=== PATIENT | male | born 1945 | race African-American/Black ===

== ENCOUNTER 2018-01-13 17:30 | Inpatient (IN) | payer MEDICARE, MEDICAID ==
[~2018-01-13] VITALS: Ht 180.3 cm; Wt 127.0 kg
[~2018-01-13 17:30] MED LIST: ASPI-986 PO; ATOR10TA69 PO; FLUT16SP15 NS; FURO-151 PO; POTA20TA82 PO; PRAV40TA58 PO; TRAM50TA3 PO
[2018-01-13 19:02] LABS: BG BASE EXCESS -13.4 mmol/L (-2.0-2.0); BG CARBOXYHEMOGLOBIN 1.1 % (0.5-1.5); BG DEOXYHEMOGLOBIN 1.1 % (0.0-5.0); BG FRACTION INSPIRED OXYGEN 100; BG HCO3 ACT 14.9 mmol/L (22.0-26.0); BG METHEMOGLOBIN 0.2 % (0.0-1.5); BG OXYGEN SATURATION 98.9 % (92.0-98.5); BG OXYHEMOGLOBIN 97.6 % (94.0-97.0); BG PCO2 49.1 mmHg (35.0-45.0); BG PH 7.101 (7.350-7.450); BG PO2 252.6 mmHg (75.0-100.0); BG SAMPLE SITE LEFT BRACHIAL; BG TOTAL HEMOGLOBIN 5.4 g/dL (12.0-18.0); BG VENT MODE MASK - NRB
[2018-01-13 19:19] LABS: MEAN CORPUSCULAR HEMOGLOBIN 25.5 pg (28.0-32.0); MEAN CORPUSCULAR VOLUME 84.5 fL (80.0-94.0); MEAN PLATELET VOLUME 7.2 fl (7.4-10.4); PLATELET 329 x1000/uL (130-400); RED BLOOD CELL COUNT 1.92 mill/uL (4.7-6.1); RED CELL DISTRIBUTION WIDTH 18.1 % (11.6-14.6)
[2018-01-13 19:27] LABS: INR 1.4; PROTHROMBIN TIME 14.5 sec (9.4-11.6)
[2018-01-13 19:35] LABS: HEMATOCRIT. 16.2 % (42.0-52.0); HEMOGLOBIN. 4.9 g/dL (14.0-18.0)
[2018-01-13 19:39] LABS: CHLORIDE 111 mEq/L (98-107)
[2018-01-13 19:59] LABS: NUCLEATED RED BLOOD CELLS 6 /100 WBC; PLATELET ESTIMATE NORMAL
[2018-01-13] MEDS ORDERED: FUROSEMIDE 100MG/10ML VIAL IV STA (20:11)
[2018-01-13] MEDS ORDERED: ALBUTEROL (0.083%) 2.5MG/3ML NEB HHN ONE (20:15)
[2018-01-13] MEDS ORDERED: SODIUM BICARBONATE 8.4% 1 MEQ/ML 50ML SYR IV ONE (20:15)
[2018-01-13] MEDS ORDERED: INSULIN REGULAR (HUMULIN R) 300UNITS/3ML IV ONE (20:15)
[2018-01-13] MEDS ORDERED: CALCIUM CHLORIDE 1GM/10ML SYR IV ONE (20:15)
[2018-01-13] MEDS ORDERED: DEXTROSE 50% WATER 50ML SYRINGE IV ONE (20:15)
[2018-01-13 20:23] LABS: INR 1.4; PROTHROMBIN TIME 14.6 sec (9.4-11.6)
[2018-01-13] MEDS ORDERED: SODIUM BICARBONATE 8.4% 1 MEQ/ML 50ML SYR IV NR (21:00)
[2018-01-14] VITALS (71 sets, daily range): BP systolic 70–176; BP diastolic 20–95
[2018-01-14 02:28] LABS: MEAN CORPUSCULAR HEMOGLOBIN 26.1 pg (28.0-32.0); MEAN CORPUSCULAR VOLUME 85.3 fL (80.0-94.0); MEAN PLATELET VOLUME 7.7 fl (7.4-10.4); PLATELET 327 x1000/uL (130-400); RED BLOOD CELL COUNT 2.29 mill/uL (4.7-6.1); RED CELL DISTRIBUTION WIDTH 16.9 % (11.6-14.6)
[2018-01-14 02:32] LABS: HEMATOCRIT. 19.5 % (42.0-52.0)
[2018-01-14] MEDS ORDERED: ALBUMIN HUMAN 25GM/100ML (25%) IV SCH (03:30)
[2018-01-14] MEDS ORDERED: DIPHENHYDRAMINE 50MG CAPSULE PO PRN (03:30)
[2018-01-14] MEDS ORDERED: DEXTROSE 50% WATER 50ML SYRINGE IV PRN (03:30)
[2018-01-14] MEDS ORDERED: CALCIUM CHLORIDE 1GM/10ML SYR IV NR ×2 (03:45→05:00)
[2018-01-14] MEDS ORDERED: DEXTROSE 50% WATER 50ML SYRINGE IV NR (03:45)
[2018-01-14] MEDS ORDERED: DEXT 10% WATER 1,000 ML IV ONE (03:45)
[2018-01-14] MEDS ORDERED: FUROSEMIDE 40MG/4ML VIAL IVP NR (03:45)
[2018-01-14] MEDS ORDERED: SODIUM BICARBONATE 8.4% 1 MEQ/ML 50ML SYR IV NR (03:45)
[2018-01-14] MEDS ORDERED: INSULIN REGULAR (HUMULIN R) UD 100 UNITS/ML SYR IV NR (03:45)
[2018-01-14 04:54] LABS: CLARITY URINE TURBID (CLEAR); COLOR URINE RED (YELLOW); KETONES URINE NEGATIVE (NEGATIVE); LEUKOCYTE ESTERASE URINE 2+ (NEGATIVE); NITRITE URINE POSITIVE (NEGATIVE); OCCULT BLOOD URINE 2+ (NEGATIVE); PROTEIN URINE 2+ (NEGATIVE); SPECIFIC GRAVITY URINE 1.017 (1.005-1.030); UROBILINOGEN URINE 0.2 E.U./dL (0.2-1.0)
[2018-01-14 05:12] LABS: NUCLEATED RED BLOOD CELLS 8 /100 WBC
[2018-01-14 05:13] LABS: PLATELET ESTIMATE NORMAL
[2018-01-14] MEDS ORDERED: VANCOMYCIN 1500MG in DEXTROSE 5% WATER 250ML IV NR (06:00)
[2018-01-14] MEDS: MEROPENEM 500 MG in SODIUM CHLORIDE 0.9% 50 ML IV SCH ×2 (06:28→17:17)
[2018-01-14 07:45] LABS: MEAN CORPUSCULAR HEMOGLOBIN 26.9 pg (28.0-32.0); MEAN PLATELET VOLUME 7.5 fl (7.4-10.4); PLATELET 291 x1000/uL (130-400); RED BLOOD CELL COUNT 2.28 mill/uL (4.7-6.1)
[2018-01-14 07:50] LABS: BG BASE EXCESS -13.3 mmol/L (-2.0-2.0); BG CARBOXYHEMOGLOBIN 2.1 % (0.5-1.5); BG DEOXYHEMOGLOBIN 5.8 % (0.0-5.0); BG FRACTION INSPIRED OXYGEN 21; BG HCO3 ACT 13.4 mmol/L (22.0-26.0); BG METHEMOGLOBIN 0.2 % (0.0-1.5); BG OXYGEN SATURATION 94.1 % (92.0-98.5); BG OXYHEMOGLOBIN 91.9 % (94.0-97.0); BG PCO2 34.8 mmHg (35.0-45.0); BG PH 7.205 (7.350-7.450); BG PO2 80.3 mmHg (75.0-100.0); BG SAMPLE SITE RIGHT BRACHIAL; BG VENT MODE ROOM AIR
[2018-01-14] MEDS ORDERED: LIDOCAINE HCL 1% 20ML VIAL (Pyxis) INJ ONE (07:52)
[2018-01-14 07:56] LABS: HEMATOCRIT. 19.4 % (42.0-52.0); HEMOGLOBIN. 6.1 g/dL (14.0-18.0)
[2018-01-14] MEDS ORDERED: LORAZEPAM 2MG/ML CPJ IV PRN (08:00)
[2018-01-14] MEDS ORDERED: SODIUM BICARBONATE 8.4% 1 MEQ/ML 50ML SYR IV SCH (08:00)
[2018-01-14] MEDS ORDERED: LORAZEPAM 2MG/ML CPJ IV SCH (08:15)
[2018-01-14] MEDS ORDERED: LORAZEPAM 1MG TABLET PO PRN (08:15)
[2018-01-14 10:01] LABS: NUCLEATED RED BLOOD CELLS 4 /100 WBC; PLATELET ESTIMATE NORMAL
[2018-01-14] MEDS: PANTOPRAZOLE SODIUM 40 MG/VIAL IV SCH (10:04)
[2018-01-14 10:25] LABS: *AMPHETAMINES SCREEN URINE NEGATIVE (NEGATIVE); *BARBITURATES SCREEN URINE NEGATIVE (NEGATIVE); *BENZODIAZEPINES SCREEN URINE NEGATIVE (NEGATIVE); *COCAINE SCREEN URINE NEGATIVE (NEGATIVE); CANNABINOID URINE SCREEN NEGATIVE (NEGATIVE); METHADONE URINE SCREEN NEGATIVE (NEGATIVE); OPIATES URINE SCREEN NEGATIVE (NEGATIVE); PHENCYCLIDINE URINE SCREEN NEGATIVE (NEGATIVE)
[2018-01-14 11:58] LABS: HEPATITIS B SURFACE ANTIGEN NEGATIVE
[2018-01-14] MEDS: BLOOD SUGAR DIAGNOSTIC STRIP TEST SCH ×2 (12:00→18:05)
[2018-01-14 12:25] LABS: HEPATITIS B CORE AB IGM NEGATIVE
[2018-01-14 12:26] LABS: HEPATITIS A AB IGM NEGATIVE (NEGATIVE)
[2018-01-14] MEDS: ALBUMIN HUMAN 25GM/100ML (25%) IV SCH (14:03)
[2018-01-14 16:57] LABS: HEMATOCRIT. 21.7 % (42.0-52.0); HEMOGLOBIN. 7.3 g/dL (14.0-18.0); MEAN CORPUSCULAR HEMOGLOBIN 27.3 pg (28.0-32.0); MEAN CORPUSCULAR VOLUME 81.5 fL (80.0-94.0); MEAN PLATELET VOLUME 7.4 fl (7.4-10.4); PLATELET 279 x1000/uL (130-400); RED BLOOD CELL COUNT 2.66 mill/uL (4.7-6.1); RED CELL DISTRIBUTION WIDTH 16.2 % (11.6-14.6)
[2018-01-14] MEDS ORDERED: VANCOMYCIN 750 MG PREMIX 150 ML IV NR (17:00)
[2018-01-14] MEDS ORDERED: DIGOXIN 500MCG/2ML AMP IV NR (17:00)
[2018-01-14 17:02] LABS: PHOSPHORUS 5.3 mg/dL (2.5-4.9)
[2018-01-14 17:05] LABS: CREATINE KINASE MB FRACTION 5.2 ng/mL (0.5-3.6)
[2018-01-14] MEDS ORDERED: AMIODARONE HCL 150 MG in DEXT 5% WATER 100 ML IV NR (17:30)
[2018-01-14] MEDS: AMIODARONE HCL 900 MG in DEXT 5% WATER 482 ML IV PRN (18:07)
[2018-01-14] MEDS: LORAZEPAM 2MG/ML CPJ IV PRN (19:30)
[2018-01-14 22:22] LABS: NUCLEATED RED BLOOD CELLS 15 /100 WBC; PLATELET ESTIMATE NORMAL
[2018-01-15] VITALS (54 sets, daily range): BP systolic 109–174; BP diastolic 51–114
[2018-01-15] MEDS: LORAZEPAM 2MG/ML CPJ IV PRN ×5 (00:09→17:20)
[2018-01-15] MEDS: ALBUMIN HUMAN 25GM/100ML (25%) IV SCH ×2 (03:59→16:04)
[2018-01-15 05:41] LABS: HEMATOCRIT. 28.5 % (42.0-52.0); HEMOGLOBIN. 9.6 g/dL (14.0-18.0); MEAN CORPUSCULAR HEMOGLOBIN 27.9 pg (28.0-32.0); MEAN CORPUSCULAR VOLUME 82.7 fL (80.0-94.0); MEAN PLATELET VOLUME 7.5 fl (7.4-10.4); PLATELET 298 x1000/uL (130-400); RED BLOOD CELL COUNT 3.45 mill/uL (4.7-6.1)
[2018-01-15 05:51] LABS: CHLORIDE 108 mEq/L (98-107)
[2018-01-15] MEDS: BLOOD SUGAR DIAGNOSTIC STRIP TEST SCH ×5 (05:56→23:47)
[2018-01-15] MEDS: MEROPENEM 500 MG in SODIUM CHLORIDE 0.9% 50 ML IV SCH ×2 (05:56→17:20)
[2018-01-15 06:06] LABS: HDL CHOLESTEROL 15 mg/dL (40-59); LDL CHOLESTEROL 30 mg/dL (5-100); PHOSPHORUS 6.1 mg/dL (2.5-4.9); TOTAL IRON BINDING CAPACITY 395 ug/dL (250-450)
[2018-01-15 07:07] LABS: NUCLEATED RED BLOOD CELLS 8 /100 WBC; PLATELET ESTIMATE NORMAL
[2018-01-15] MEDS: DEXT 5%/0.45% NACL 1000ML 1,000 ML IV SCH (08:14)
[2018-01-15] MEDS: PANTOPRAZOLE SODIUM 40 MG/VIAL IV SCH (08:15)
[2018-01-15] MEDS ORDERED: RIVA20TA PO (16:54)
[2018-01-15] MEDS ORDERED: FURO40TA5 PO (16:54)
[2018-01-15] MEDS ORDERED: FEBU40TA PO (16:54)
[2018-01-15] MEDS ORDERED: TAMS0.4C31 PO (16:54)
[2018-01-15] MEDS: AMIODARONE HCL 900 MG in DEXT 5% WATER 482 ML IV PRN (19:56)
[2018-01-16] VITALS (45 sets, daily range): BP systolic 106–186; BP diastolic 53–112
[2018-01-16] MEDS: LORAZEPAM 2MG/ML CPJ IV PRN ×2 (00:13→04:02)
[2018-01-16] MEDS: ALBUMIN HUMAN 25GM/100ML (25%) IV SCH ×2 (02:47→16:18)
[2018-01-16] MEDS: DEXT 5%/0.45% NACL 1000ML 1,000 ML IV SCH ×2 (02:47→22:32)
[2018-01-16] MEDS: MEROPENEM 500 MG in SODIUM CHLORIDE 0.9% 50 ML IV SCH (05:09)
[2018-01-16] MEDS: BLOOD SUGAR DIAGNOSTIC STRIP TEST SCH ×4 (05:28→23:40)
[2018-01-16 05:40] LABS: HEMATOCRIT. 27.8 % (42.0-52.0); HEMOGLOBIN. 9.2 g/dL (14.0-18.0); MEAN CORPUSCULAR HEMOGLOBIN 27.3 pg (28.0-32.0); MEAN CORPUSCULAR VOLUME 82.9 fL (80.0-94.0); MEAN PLATELET VOLUME 7.3 fl (7.4-10.4); PLATELET 289 x1000/uL (130-400); RED BLOOD CELL COUNT 3.36 mill/uL (4.7-6.1); RED CELL DISTRIBUTION WIDTH 16.3 % (11.6-14.6)
[2018-01-16 06:07] LABS: PHOSPHORUS 5.5 mg/dL (2.5-4.9)
[2018-01-16] MEDS ORDERED: HALOPERIDOL LACTATE 5MG/ML VIAL IM PRN (07:45)
[2018-01-16 07:47] LABS: NUCLEATED RED BLOOD CELLS 1 /100 WBC; PLATELET ESTIMATE NORMAL
[2018-01-16 07:55] LABS: AMMONIA 30 uMol/L (<32)
[2018-01-16] MEDS: PANTOPRAZOLE SODIUM 40 MG/VIAL IV SCH (07:55)
[2018-01-16] MEDS ORDERED: MORPHINE SULFATE 2 MG/ML CPJ (NOT FOR IM USE) IV NR (13:15)
[2018-01-16] MEDS ORDERED: MORPHINE SULFATE 4 MG/ML CPJ (NOT FOR IM USE) IV ONE (13:24)
[2018-01-16] MEDS ORDERED: MORPHINE SULFATE 4 MG/ML CPJ (NOT FOR IM USE) IV NR (13:30)
[2018-01-16] MEDS ORDERED: CLONIDINE HCL 0.1MG/24HR PATCH TD SCH (14:00)
[2018-01-16] MEDS: DIAZEPAM 5 MG/ML 2ML CPJ IM PRN ×2 (14:27→20:15)
[2018-01-16] MEDS ORDERED: VANCOMYCIN 1 G PREMIX 200 ML IV SCH (15:00)
[2018-01-16] MEDS ORDERED: FLUCONAZOLE 100 MG/50ML BAG 50 ML IV SCH (16:00)
[2018-01-16] MEDS ORDERED: THIAMINE HCL 100 MG in SODIUM CHLORIDE 0.9% 49 ML IV NR (16:00)
[2018-01-16] MEDS: MORPHINE SULFATE 4 MG/ML CPJ (NOT FOR IM USE) IV PRN ×2 (17:46→22:28)
[2018-01-16] MEDS: FLUCONAZOLE 100MG/50ML in BAG IV SCH (17:46)
[2018-01-17] VITALS (88 sets, daily range): BP systolic 117–197; BP diastolic 57–108
[2018-01-17] MEDS: DIAZEPAM 5 MG/ML 2ML CPJ IM PRN (01:55)
[2018-01-17] MEDS: AMIODARONE HCL 900 MG in DEXT 5% WATER 482 ML IV PRN (03:03)
[2018-01-17] MEDS: MORPHINE SULFATE 4 MG/ML CPJ (NOT FOR IM USE) IV PRN ×4 (03:03→20:08)
[2018-01-17 04:55] LABS: HEMATOCRIT. 26.6 % (42.0-52.0); HEMOGLOBIN. 8.9 g/dL (14.0-18.0); MEAN CORPUSCULAR HEMOGLOBIN 27.7 pg (28.0-32.0); MEAN PLATELET VOLUME 7.3 fl (7.4-10.4); PLATELET 263 x1000/uL (130-400); RED BLOOD CELL COUNT 3.21 mill/uL (4.7-6.1); RED CELL DISTRIBUTION WIDTH 15.8 % (11.6-14.6)
[2018-01-17 05:16] LABS: PHOSPHORUS 3.2 mg/dL (2.5-4.9)
[2018-01-17] MEDS: BLOOD SUGAR DIAGNOSTIC STRIP TEST SCH ×4 (05:32→23:54)
[2018-01-17 07:37] LABS: PLATELET ESTIMATE NORMAL
[2018-01-17] MEDS: PANTOPRAZOLE SODIUM 40 MG/VIAL IV SCH (08:30)
[2018-01-17] MEDS: AMIODARONE HCL 200 MG TABLET PO SCH ×2 (12:09→20:31)
[2018-01-17] MEDS: FLUCONAZOLE 100MG/50ML in BAG IV SCH (15:03)
[2018-01-17] MEDS ORDERED: CLONIDINE 0.1MG TABLET PO PRN (17:45)
[2018-01-17] MEDS ORDERED: IPRATROPIUM/ALBUTEROL 0.5-3(2.5)MG/3ML NEB HHN PRN (17:45)
[2018-01-17] MEDS ORDERED: DEXTROSE 50% WATER 50ML SYRINGE IV PRN (18:00)
[2018-01-17] MEDS: DEXT 5%/0.45% NACL 1000ML 1,000 ML IV SCH (18:34)
[2018-01-17] MEDS: IPRATROPIUM/ALBUTEROL 0.5-3(2.5)MG/3ML NEB HHN SCH (20:22)
[2018-01-18] VITALS (33 sets, daily range): BP systolic 122–171; BP diastolic 48–104
[2018-01-18] MEDS: IPRATROPIUM/ALBUTEROL 0.5-3(2.5)MG/3ML NEB HHN SCH ×4 (00:17→20:03)
[2018-01-18] MEDS: MORPHINE SULFATE 4 MG/ML CPJ (NOT FOR IM USE) IV PRN ×3 (02:41→19:50)
[2018-01-18] MEDS: BLOOD SUGAR DIAGNOSTIC STRIP TEST SCH ×5 (04:08→21:00)
[2018-01-18 05:47] LABS: BASOPHILS % 0.4 % (0.0-2.0); EOSINOPHILS % 2.2 % (0.0-5.0); HEMOGLOBIN. 8.4 g/dL (14.0-18.0); LYMPHOCYTES % 7.8 % (20.0-50.0); MEAN CORPUSCULAR HEMOGLOBIN 27.7 pg (28.0-32.0); MEAN CORPUSCULAR VOLUME 85.9 fL (80.0-94.0); MEAN PLATELET VOLUME 7.4 fl (7.4-10.4); MONOCYTES % 12.7 % (2.0-8.0); NEUTROPHILS % 76.9 % (40.0-76.0); PLATELET 217 x1000/uL (130-400); RED BLOOD CELL COUNT 3.03 mill/uL (4.7-6.1); RED CELL DISTRIBUTION WIDTH 16.6 % (11.6-14.6)
[2018-01-18] MEDS: PANTOPRAZOLE SODIUM 40 MG/VIAL IV SCH (08:32)
[2018-01-18] MEDS: AMIODARONE HCL 200 MG TABLET PO SCH ×2 (08:32→21:19)
[2018-01-18] MEDS ORDERED: CLOTRIMAZOLE/BETAMETHASONE 1/0.05% CREAM 15GM TOP SCH (09:00)
[2018-01-18] MEDS ORDERED: POTASSIUM CHLORIDE 20MEQ TABLET SR PO NR (09:30)
[2018-01-18] MEDS: CLOTRIMAZOLE 1% CREAM 30GM TOP SCH (09:59)
[2018-01-18] MEDS ORDERED: VANCOMYCIN 1,750 MG in DEXT 5% WATER 500 ML IV NR (10:00)
[2018-01-18] MEDS: SILVER SULFADIAZINE 1% CREAM 50GM TOP SCH (10:00)
[2018-01-18] MEDS: BETAMETHASONE DIPROPIONATE 0.05% TOP SCH (10:00)
[2018-01-18] MEDS: FLUCONAZOLE 100MG/50ML in BAG IV SCH (17:05)
[2018-01-18] MEDS: DIPHENHYDRAMINE 25MG CAPSULE PO PRN (21:20)
[2018-01-19] VITALS (9 sets, daily range): BP systolic 131–168; BP diastolic 55–77
[2018-01-19] MEDS: MORPHINE SULFATE 4 MG/ML CPJ (NOT FOR IM USE) IV PRN ×2 (04:49→12:04)
[2018-01-19] MEDS: IPRATROPIUM/ALBUTEROL 0.5-3(2.5)MG/3ML NEB HHN SCH ×4 (04:51→21:31)
[2018-01-19] MEDS: PANTOPRAZOLE 40MG DR TABLET PO SCH (05:55)
[2018-01-19 05:57] LABS: HEMATOCRIT. 27.6 % (42.0-52.0); HEMOGLOBIN. 9.1 g/dL (14.0-18.0); MEAN CORPUSCULAR HEMOGLOBIN 27.4 pg (28.0-32.0); MEAN CORPUSCULAR VOLUME 83.2 fL (80.0-94.0); PLATELET 242 x1000/uL (130-400); RED BLOOD CELL COUNT 3.32 mill/uL (4.7-6.1); RED CELL DISTRIBUTION WIDTH 16.7 % (11.6-14.6)
[2018-01-19] MEDS ORDERED: BLOOD SUGAR DIAGNOSTIC STRIP TEST SCH (08:00)
[2018-01-19 08:04] LABS: PHOSPHORUS 3.8 mg/dL (2.5-4.9)
[2018-01-19] MEDS: AMIODARONE HCL 200 MG TABLET PO SCH ×2 (08:09→21:03)
[2018-01-19] MEDS: BLOOD SUGAR DIAGNOSTIC STRIP TEST SCH ×2 (08:09→21:00)
[2018-01-19] MEDS: CLOTRIMAZOLE 1% CREAM 30GM TOP SCH (08:10)
[2018-01-19] MEDS: BETAMETHASONE DIPROPIONATE 0.05% TOP SCH (08:10)
[2018-01-19] MEDS: SILVER SULFADIAZINE 1% CREAM 50GM TOP SCH (08:10)
[2018-01-19 12:42] LABS: CLARITY URINE CLOUDY (CLEAR); COLOR URINE ORANGE (YELLOW); KETONES URINE NEGATIVE (NEGATIVE); LEUKOCYTE ESTERASE URINE 2+ (NEGATIVE); NITRITE URINE NEGATIVE (NEGATIVE); OCCULT BLOOD URINE 3+ (NEGATIVE); PROTEIN URINE 2+ (NEGATIVE); SPECIFIC GRAVITY URINE 1.013 (1.005-1.030); UROBILINOGEN URINE 0.2 E.U./dL (0.2-1.0)
[2018-01-19 13:52] LABS: PLATELET ESTIMATE NORMAL
[2018-01-19] MEDS: ACETAMINOPHEN 325MG TABLET PO PRN (14:07)
[2018-01-19] MEDS: GUAIFENESIN-DM 200MG-20MG/10ML UDC PO PRN (17:13)
[2018-01-19] MEDS: FLUCONAZOLE 100MG/50ML in BAG IV SCH (17:17)
[2018-01-19] MEDS: BENZONATATE 200MG CAPSULE PO SCH ×2 (17:23→21:03)
[2018-01-19] MEDS ORDERED: FUROSEMIDE 100MG/10ML VIAL IVP NR (21:00)
[2018-01-19] MEDS: NAPROXEN 250MG TABLET PO SCH (21:03)
[2018-01-19] MEDS: ISOSORB DINIT/HYDRALAZINE HCL 20/37.5MG TABLET PO SCH (21:04)
[2018-01-19 21:56] LABS: CREATINE KINASE 224 IU/L (39-308); CREATINE KINASE MB FRACTION 2.6 ng/mL (0.5-3.6)
[2018-01-20] VITALS (8 sets, daily range): BP systolic 106–135; BP diastolic 48–58
[2018-01-20] MEDS: IPRATROPIUM/ALBUTEROL 0.5-3(2.5)MG/3ML NEB HHN SCH ×4 (02:25→20:58)
[2018-01-20] MEDS: ISOSORB DINIT/HYDRALAZINE HCL 20/37.5MG TABLET PO SCH ×3 (05:52→21:25)
[2018-01-20] MEDS: PANTOPRAZOLE 40MG DR TABLET PO SCH (05:52)
[2018-01-20 06:38] LABS: BASOPHILS % 0.5 % (0.0-2.0); HEMATOCRIT. 29.3 % (42.0-52.0); HEMOGLOBIN. 9.4 g/dL (14.0-18.0); MEAN CORPUSCULAR HEMOGLOBIN 27.2 pg (28.0-32.0); MEAN CORPUSCULAR VOLUME 84.5 fL (80.0-94.0); MEAN PLATELET VOLUME 7.6 fl (7.4-10.4); MONOCYTES % 10.4 % (2.0-8.0); NEUTROPHILS % 79.1 % (40.0-76.0); PLATELET 232 x1000/uL (130-400); RED BLOOD CELL COUNT 3.47 mill/uL (4.7-6.1); RED CELL DISTRIBUTION WIDTH 17.1 % (11.6-14.6)
[2018-01-20] MEDS: NAPROXEN 250MG TABLET PO SCH ×2 (08:14→17:10)
[2018-01-20] MEDS: BLOOD SUGAR DIAGNOSTIC STRIP TEST SCH ×2 (08:15→21:00)
[2018-01-20] MEDS: BENZONATATE 200MG CAPSULE PO SCH ×4 (08:15→21:25)
[2018-01-20] MEDS: AMIODARONE HCL 200 MG TABLET PO SCH ×2 (08:15→21:24)
[2018-01-20 08:38] LABS: CHLORIDE 107 mEq/L (98-107)
[2018-01-20 08:50] LABS: CREATINE KINASE 193 IU/L (39-308); CREATINE KINASE MB FRACTION 2.4 ng/mL (0.5-3.6); PHOSPHORUS 4.6 mg/dL (2.5-4.9); T4 FREE 1.05 ng/dL (0.76-1.46)
[2018-01-20] MEDS ORDERED: FUROSEMIDE 100MG/10ML VIAL IVP SCH (10:15)
[2018-01-20] MEDS: BETAMETHASONE DIPROPIONATE 0.05% TOP SCH (10:19)
[2018-01-20] MEDS: SILVER SULFADIAZINE 1% CREAM 50GM TOP SCH (10:19)
[2018-01-20] MEDS: CLOTRIMAZOLE 1% CREAM 30GM TOP SCH (10:19)
[2018-01-20] MEDS: MORPHINE SULFATE 4 MG/ML CPJ (NOT FOR IM USE) IV PRN ×2 (10:21→21:26)
[2018-01-20] MEDS: GUAIFENESIN-DM 200MG-20MG/10ML UDC PO PRN ×2 (10:29→21:26)
[2018-01-20] MEDS: FLUCONAZOLE 100MG/50ML in BAG IV SCH (15:35)
[2018-01-20] MEDS: DIPHENHYDRAMINE 25MG CAPSULE PO PRN (23:58)
[2018-01-20] MEDS: ACETAMINOPHEN 325MG TABLET PO PRN (23:58)
[2018-01-21] VITALS: BP 97/72
[2018-01-21] MEDS: IPRATROPIUM/ALBUTEROL 0.5-3(2.5)MG/3ML NEB HHN SCH ×2 (02:27→08:15)
[2018-01-21 04:00] VITALS: BP 124/55
[2018-01-21] MEDS: ISOSORB DINIT/HYDRALAZINE HCL 20/37.5MG TABLET PO SCH (06:06)
[2018-01-21] MEDS: PANTOPRAZOLE 40MG DR TABLET PO SCH (06:06)
[2018-01-21] MEDS: MORPHINE SULFATE 4 MG/ML CPJ (NOT FOR IM USE) IV PRN (06:11)
[2018-01-21 08:10] VITALS: BP 131/51
[2018-01-21] MEDS: BLOOD SUGAR DIAGNOSTIC STRIP TEST SCH (09:00)
[2018-01-21] MEDS: SILVER SULFADIAZINE 1% CREAM 50GM TOP SCH ×2 (09:32→09:46)
[2018-01-21] MEDS: AMIODARONE HCL 200 MG TABLET PO SCH (09:32)
[2018-01-21] MEDS: NAPROXEN 250MG TABLET PO SCH (09:32)
[2018-01-21] MEDS: BENZONATATE 200MG CAPSULE PO SCH (09:32)
[2018-01-21] MEDS: CLOTRIMAZOLE 1% CREAM 30GM TOP SCH (09:47)
[2018-01-21] MEDS: BETAMETHASONE DIPROPIONATE 0.05% TOP SCH (09:48)
[2018-01-21 11:46] VITALS: BP 130/72
[2018-01-21 12:29] VITALS: BP 128/59
[2018-01-22 08:21] LABS: TESTOSTERONE FREE 0.8 pg/mL (6.6-18.1)
== END 2018-01-21 13:07 | disposition home health service (06) | DRG 871 ==
LOC: ER 17:46 → MICUSO 20:32 → EDBEDREQSVC 20:34 → EDBEDREQTM 20:34 → EDBEDREQ 20:34 → ENRESERV 22:07 → 6WST 01-18 14:11
PROVIDERS: ADMIT Internal Medicine; ATTEND Internal Medicine
PROC: 30233N1 Transfusion of Nonautologous Red Blood Cells into Peripheral Vein, Percutaneous Approach (ICD-10-PCS; 2018-01-13)
PROC: 02HV33Z Insertion of Infusion Device into Superior Vena Cava, Percutaneous Approach (ICD-10-PCS; 2018-01-14)
PROC: B548ZZA Ultrasonography of Superior Vena Cava, Guidance (ICD-10-PCS; 2018-01-14)
PROC: 5A1D70Z Performance of Urinary Filtration, Intermittent, Less than 6 Hours Per Day (ICD-10-PCS; 2018-01-14)
PROC: 5A1D70Z Performance of Urinary Filtration, Intermittent, Less than 6 Hours Per Day (ICD-10-PCS; 2018-01-16)
PROC: 4A00X4Z Measurement of Central Nervous Electrical Activity, External Approach (ICD-10-PCS; principal; 2018-01-17)
DX: A41.9 Sepsis, unspecified organism (principal); E43 Unspecified severe protein-calorie malnutrition; J69.0 Pneumonitis due to inhalation of food and vomit; N17.0 Acute kidney failure with tubular necrosis; G92 Toxic encephalopathy; E87.2 Acidosis; I13.0 Hypertensive heart and chronic kidney disease with heart failure and stage 1 through stage 4 chronic kidney disease, or unspecified chronic kidney disease; N39.0 Urinary tract infection, site not specified; F11.23 Opioid dependence with withdrawal; L03.115 Cellulitis of right lower limb; L03.116 Cellulitis of left lower limb; E11.22 Type 2 diabetes mellitus with diabetic chronic kidney disease; E11.40 Type 2 diabetes mellitus with diabetic neuropathy, unspecified; E11.51 Type 2 diabetes mellitus with diabetic peripheral angiopathy without gangrene; I48.0 Paroxysmal atrial fibrillation; E86.0 Dehydration; I50.9 Heart failure, unspecified; N18.9 Chronic kidney disease, unspecified; D64.9 Anemia, unspecified; E66.01 Morbid (severe) obesity due to excess calories; E78.00 Pure hypercholesterolemia, unspecified; E78.5 Hyperlipidemia, unspecified; E87.5 Hyperkalemia; G89.29 Other chronic pain; I87.2 Venous insufficiency (chronic) (peripheral); J44.9 Chronic obstructive pulmonary disease, unspecified; L30.9 Dermatitis, unspecified; M19.90 Unspecified osteoarthritis, unspecified site; Z86.718 Personal history of other venous thrombosis and embolism; Z88.0 Allergy status to penicillin; Z99.2 Dependence on renal dialysis; Z79.82 Long term (current) use of aspirin; Z79.899 Other long term (current) drug therapy; Z68.39 Body mass index [BMI] 39.0-39.9, adult
CPT/HCPCS: 36415; 36569; 36600; 70450; 71045; 74176; 76770; 76937; 80048; 80053; 80061; 80069; 80076; 80202; 80305; 81003; 82140; 82375; 82550; 82553; 82575; 82805; 82947; 82962; 83036; 83540; 83550; 83605; 83735; 83880; 84100; 84153; 84402; 84403; 84439; 84443; 84484; 84550; 85025; 85049; 85610; 85651; 86705; 86709; 86803; 86850; 86900; 86920; 87040; 87070; 87077; 87086; 87186; 87205; 87340; 87804; 93005; 93306; 94640; 96374; 96375; 97116; 97162; 97166; 99291; A6261; C1752; C9113; J0282; J1160; J1450; J1630; J1815; J1940; J2060; J2185; J2270; J3370; J3411; J3490; J7030; J7050; J7060; J7620; P9016; P9047; Q0163

== ENCOUNTER 2018-08-07 16:04 | Inpatient (IN) | payer MEDICARE, OTHER ==
[~2018-08-07] VITALS: Ht 170.2 cm; Wt 103.6 kg
[~2018-08-07 16:04] MED LIST changes: +FEBU40TA PO; +FURO40TA5 PO; +RIVA20TA PO; +TAMS0.4C31 PO
[2018-08-07] MEDS ORDERED: SODIUM CHLORIDE 0.9% 1000ML BAG (SEPSIS BOLUS) IV ONE (16:45)
[2018-08-07 17:05] LABS: BASOPHILS % 0.5 % (0.0-2.0); CHLORIDE 100 mEq/L (98-107); EOSINOPHILS % 0.7 % (0.0-5.0); HEMATOCRIT. 24.6 % (42.0-52.0); HEMOGLOBIN. 7.9 g/dL (14.0-18.0); LYMPHOCYTES % 15.1 % (20.0-50.0); MEAN CORPUSCULAR HEMOGLOBIN 27.7 pg (28.0-32.0); MEAN PLATELET VOLUME 7.2 fl (7.4-10.4); MONOCYTES % 11.4 % (2.0-8.0); NEUTROPHILS % 72.3 % (40.0-76.0); PLATELET 442 x1000/uL (130-400); RED BLOOD CELL COUNT 2.86 mill/uL (4.7-6.1); RED CELL DISTRIBUTION WIDTH 17.2 % (11.6-14.6)
[2018-08-07 17:07] LABS: INR 1.3; PARTIAL THROMBOPLASTIN TIME 34.1 sec (23.4-31.0); PROTHROMBIN TIME 13.1 sec (9.1-11.1)
[2018-08-07 17:29] LABS: CLARITY URINE CLEAR (CLEAR); COLOR URINE YELLOW (YELLOW); KETONES URINE TRACE (NEGATIVE); LEUKOCYTE ESTERASE URINE NEGATIVE (NEGATIVE); NITRITE URINE NEGATIVE (NEGATIVE); OCCULT BLOOD URINE TRACE (NEGATIVE); PROTEIN URINE NEGATIVE (NEGATIVE); SPECIFIC GRAVITY URINE 1.012 (1.005-1.030); UROBILINOGEN URINE 0.2 E.U./dL (0.2-1.0)
[2018-08-07] MEDS ORDERED: LEVOFLOXACIN 750MG PREMIX 150 ML IV ONE (18:00)
[2018-08-07] MEDS ORDERED: ASPIRIN 325MG EC TABLET PO ONE (18:00)
[2018-08-07 22:17] VITALS: BP 125/68
[2018-08-07 22:23] VITALS: BP 125/68
[2018-08-07 22:31] VITALS: BP 125/68
[2018-08-08] VITALS (7 sets, daily range): BP systolic 95–129; BP diastolic 36–68
[2018-08-08] MEDS ORDERED: MAGNESIUM CITRATE 300ML SOLUTION PO PRN (04:00)
[2018-08-08 06:59] LABS: BASOPHILS % 0.7 % (0.0-2.0); EOSINOPHILS % 2.2 % (0.0-5.0); HEMATOCRIT. 22.5 % (42.0-52.0); HEMOGLOBIN. 7.4 g/dL (14.0-18.0); MEAN CORPUSCULAR HEMOGLOBIN 28.2 pg (28.0-32.0); MEAN PLATELET VOLUME 7.1 fl (7.4-10.4); MONOCYTES % 9.2 % (2.0-8.0); NEUTROPHILS % 68.9 % (40.0-76.0); PLATELET 407 x1000/uL (130-400); RED BLOOD CELL COUNT 2.62 mill/uL (4.7-6.1); RED CELL DISTRIBUTION WIDTH 16.9 % (11.6-14.6)
[2018-08-08] MEDS ORDERED: OMEPRAZOLE 20MG CAPSULE EXTENDED RELEASE PO SCH (07:40)
[2018-08-08] MEDS: TAMSULOSIN HCL 0.4MG SR CAPSULE PO SCH ×2 (08:44→16:53)
[2018-08-08] MEDS: DOCUSATE SODIUM 100MG CAPSULE PO SCH ×2 (08:45→16:54)
[2018-08-08] MEDS: FLUCONAZOLE 100MG TABLET PO SCH (08:45)
[2018-08-08 09:05] LABS: PHOSPHORUS 4.5 mg/dL (2.5-4.9)
[2018-08-08] MEDS: RIVAROXABAN 15 MG TABLET PO SCH (16:54)
[2018-08-08] MEDS: ZOLPIDEM TARTRATE 5MG TABLET PO PRN (20:34)
[2018-08-08] MEDS: ATORVASTATIN CALCIUM 10MG TABLET PO SCH (20:34)
[2018-08-09 08:00] VITALS: BP 113/59
[2018-08-09] MEDS: FLUCONAZOLE 100MG TABLET PO SCH (09:51)
[2018-08-09] MEDS: TAMSULOSIN HCL 0.4MG SR CAPSULE PO SCH ×2 (09:52→17:40)
[2018-08-09] MEDS: DOCUSATE SODIUM 100MG CAPSULE PO SCH ×2 (09:57→17:40)
[2018-08-09 12:00] VITALS: BP 114/64
[2018-08-09 16:00] VITALS: BP_SYST 110; BP_SYST 113; BP_SYST 118; BP_DIAS 52; BP_DIAS 55; BP_DIAS 58
[2018-08-09] MEDS: RIVAROXABAN 15 MG TABLET PO SCH (17:40)
[2018-08-09 20:00] VITALS: BP_SYST 108; BP_SYST 109; BP_SYST 98; BP_DIAS 49; BP_DIAS 51; BP_DIAS 53
[2018-08-09] MEDS: ATORVASTATIN CALCIUM 10MG TABLET PO SCH (21:38)
[2018-08-10] VITALS: BP 111/56
[2018-08-10] MEDS ORDERED: ACETAMINOPHEN 325MG TABLET PO PRN (00:15)
[2018-08-10] MEDS ORDERED: DIATR MEGLU/DIATRIZOATE SOLN 30ML PO SCH (00:15)
[2018-08-10 01:08] LABS: HEMATOCRIT 24.5 % (42.0-52.0); HEMOGLOBIN 7.9 g/dL (14.0-18.0)
[2018-08-10 04:00] VITALS: BP 106/54
[2018-08-10] MEDS ORDERED: EPOETIN ALFA 10000UNITS/ML VIAL SUBCUT NR (04:00)
[2018-08-10] MEDS: IRON SUCROSE COMPLEX 100 MG/5 ML ML IV SCH ×2 (05:58→17:17)
[2018-08-10 08:00] VITALS: BP_SYST 121; BP_SYST 136; BP_SYST 144; BP_DIAS 63; BP_DIAS 65; BP_DIAS 74
[2018-08-10] MEDS: CYANOCOBALAMIN/FA/PYRIDOXINE TABLET PO SCH (08:09)
[2018-08-10] MEDS: TAMSULOSIN HCL 0.4MG SR CAPSULE PO SCH ×2 (08:09→17:20)
[2018-08-10] MEDS: FLUCONAZOLE 100MG TABLET PO SCH (08:09)
[2018-08-10] MEDS: DOCUSATE SODIUM 100MG CAPSULE PO SCH ×2 (08:09→17:00)
[2018-08-10 12:00] VITALS: BP 120/54
[2018-08-10] MEDS ORDERED: DEXT 5%/0.45% NACL 1000ML 1,000 ML IV SCH (15:30)
[2018-08-10 16:00] VITALS: BP 115/53
[2018-08-10] MEDS ORDERED: DEXT 5%/0.45% NACL 1000ML 1,000 ML IV ONE (16:15)
[2018-08-10] MEDS: RIVAROXABAN 15 MG TABLET PO SCH (17:17)
[2018-08-10 19:40] LABS: HEMATOCRIT 23.8 % (42.0-52.0); HEMOGLOBIN 7.6 g/dL (14.0-18.0)
[2018-08-10 20:00] VITALS: BP 115/65
[2018-08-10] MEDS: ATORVASTATIN CALCIUM 10MG TABLET PO SCH (20:41)
[2018-08-10] MEDS: ZOLPIDEM TARTRATE 5MG TABLET PO PRN (21:31)
[2018-08-11] VITALS: BP_SYST 120; BP_SYST 145; BP_DIAS 65
[2018-08-11 04:00] VITALS: BP 112/62
[2018-08-11] MEDS: IRON SUCROSE COMPLEX 100 MG/5 ML ML IV SCH ×3 (05:36→21:42)
[2018-08-11 06:13] LABS: BASOPHILS % 0.7 % (0.0-2.0); EOSINOPHILS % 1.4 % (0.0-5.0); HEMATOCRIT. 24.3 % (42.0-52.0); LYMPHOCYTES % 11.6 % (20.0-50.0); MEAN CORPUSCULAR HEMOGLOBIN 28.4 pg (28.0-32.0); MEAN CORPUSCULAR VOLUME 86.6 fL (80.0-94.0); MEAN PLATELET VOLUME 7.4 fl (7.4-10.4); MONOCYTES % 8.6 % (2.0-8.0); NEUTROPHILS % 77.7 % (40.0-76.0); PLATELET 434 x1000/uL (130-400); RED BLOOD CELL COUNT 2.81 mill/uL (4.7-6.1); RED CELL DISTRIBUTION WIDTH 16.5 % (11.6-14.6)
[2018-08-11 06:27] LABS: PHOSPHORUS 2.6 mg/dL (2.5-4.9)
[2018-08-11 06:54] LABS: VITAMIN B12 SERUM 1199 pg/mL (211-911)
[2018-08-11 08:00] VITALS: BP_SYST 121; BP_SYST 126; BP_DIAS 51; BP_DIAS 53; BP_DIAS 60
[2018-08-11] MEDS: TAMSULOSIN HCL 0.4MG SR CAPSULE PO SCH ×2 (08:26→16:13)
[2018-08-11] MEDS: FLUCONAZOLE 100MG TABLET PO SCH (08:26)
[2018-08-11] MEDS: CYANOCOBALAMIN/FA/PYRIDOXINE TABLET PO SCH (08:26)
[2018-08-11] MEDS: DOCUSATE SODIUM 100MG CAPSULE PO SCH ×2 (08:26→16:17)
[2018-08-11 10:47] LABS: FOLIC ACID (FOLATE) SERUM 11.2 ng/mL (>5.38)
[2018-08-11 11:41] VITALS: BP 121/60
[2018-08-11 16:00] VITALS: BP 125/68
[2018-08-11] MEDS: RIVAROXABAN 15 MG TABLET PO SCH (16:13)
[2018-08-11 20:00] VITALS: BP 116/59
[2018-08-11] MEDS ORDERED: EPOETIN ALFA 10000UNITS/ML VIAL SUBCUT SCH (21:00)
[2018-08-11] MEDS: ATORVASTATIN CALCIUM 10MG TABLET PO SCH (21:41)
[2018-08-11] MEDS: ZOLPIDEM TARTRATE 5MG TABLET PO PRN (21:41)
[2018-08-12] VITALS: BP 116/59
[2018-08-12 04:00] VITALS: BP 116/59
[2018-08-12] MEDS ORDERED: PANTOPRAZOLE 40MG DR TABLET PO SCH (07:40)
[2018-08-12 08:27] LABS: BASOPHILS % 0.4 % (0.0-2.0); EOSINOPHILS % 0.5 % (0.0-5.0); HEMATOCRIT. 26.5 % (42.0-52.0); HEMOGLOBIN. 8.4 g/dL (14.0-18.0); LYMPHOCYTES % 11.8 % (20.0-50.0); MEAN CORPUSCULAR HEMOGLOBIN 27.6 pg (28.0-32.0); MEAN CORPUSCULAR VOLUME 86.8 fL (80.0-94.0); MEAN PLATELET VOLUME 7.3 fl (7.4-10.4); MONOCYTES % 8.1 % (2.0-8.0); NEUTROPHILS % 79.2 % (40.0-76.0); PLATELET 439 x1000/uL (130-400); RED BLOOD CELL COUNT 3.05 mill/uL (4.7-6.1); RED CELL DISTRIBUTION WIDTH 16.4 % (11.6-14.6)
[2018-08-12] MEDS: FLUCONAZOLE 100MG TABLET PO SCH (08:29)
[2018-08-12] MEDS: CYANOCOBALAMIN/FA/PYRIDOXINE TABLET PO SCH (08:29)
[2018-08-12] MEDS: TAMSULOSIN HCL 0.4MG SR CAPSULE PO SCH (08:30)
[2018-08-12] MEDS: DOCUSATE SODIUM 100MG CAPSULE PO SCH (08:30)
[2018-08-12 09:48] LABS: PHOSPHORUS 2.5 mg/dL (2.5-4.9)
[2018-08-12 12:00] VITALS: BP 99/66
[2018-08-12 13:04] VITALS: BP 99/66
[2018-08-12 14:45] VITALS: BP 115/67
== END 2018-08-12 16:22 | disposition home health service (06) | DRG 682 ==
LOC: ER 16:56 → 7WST 19:32 → ENRESERV 20:55
PROVIDERS: ADMIT Internal Medicine; ATTEND Internal Medicine
DX: N17.0 Acute kidney failure with tubular necrosis (principal); K57.91 Diverticulosis of intestine, part unspecified, without perforation or abscess with bleeding; E43 Unspecified severe protein-calorie malnutrition; I95.2 Hypotension due to drugs; F43.20 Adjustment disorder, unspecified; M48.02 Spinal stenosis, cervical region; E11.22 Type 2 diabetes mellitus with diabetic chronic kidney disease; E11.51 Type 2 diabetes mellitus with diabetic peripheral angiopathy without gangrene; E78.00 Pure hypercholesterolemia, unspecified; I12.9 Hypertensive chronic kidney disease with stage 1 through stage 4 chronic kidney disease, or unspecified chronic kidney disease; I87.2 Venous insufficiency (chronic) (peripheral); J44.9 Chronic obstructive pulmonary disease, unspecified; H53.8 Other visual disturbances; T50.2X5A Adverse effect of carbonic-anhydrase inhibitors, benzothiadiazides and other diuretics, initial encounter; M54.12 Radiculopathy, cervical region; E86.9 Volume depletion, unspecified; E86.1 Hypovolemia; D50.9 Iron deficiency anemia, unspecified; M19.90 Unspecified osteoarthritis, unspecified site; N18.9 Chronic kidney disease, unspecified; N28.1 Cyst of kidney, acquired; Z60.2 Problems related to living alone; Z79.01 Long term (current) use of anticoagulants; Z86.73 Personal history of transient ischemic attack (TIA), and cerebral infarction without residual deficits; Z87.891 Personal history of nicotine dependence; Z88.0 Allergy status to penicillin; Z86.718 Personal history of other venous thrombosis and embolism; Z79.899 Other long term (current) drug therapy; Z79.82 Long term (current) use of aspirin; Y92.89 Other specified places as the place of occurrence of the external cause
CPT/HCPCS: 36415; 70450; 71045; 74176; 76770; 80048; 80053; 80061; 80069; 80076; 81003; 82270; 82378; 82607; 82652; 82746; 82962; 83540; 83550; 83605; 83735; 83880; 84100; 84443; 84450; 84484; 85014; 85018; 85025; 85610; 85730; 86850; 86900; 86920; 87040; 87086; 93005; 93970; 96361; 96365; 99291; J0885; J1956; J7030; Q9963

== ENCOUNTER 2020-07-29 19:01 | Inpatient (IN) | payer MEDICARE, MEDICAID ==
[~2020-07-29] VITALS: Ht 167.6 cm; Wt 106.6 kg
[~2020-07-29 19:01] MED LIST changes: -ASPI-986 PO; -ATOR10TA69 PO; -FEBU40TA PO; -FLUT16SP15 NS; -FURO40TA5 PO; +INDA1.255 PO; +MAG1TABL2 PO; +NEBI20TA2 MT; -POTA20TA82 PO; -RIVA20TA PO; -TAMS0.4C31 PO
[2020-07-29] MEDS ORDERED: MORPHINE SULFATE 4 MG/ML CPJ (NOT FOR IM USE) IV STA (21:14)
[2020-07-29] MEDS ORDERED: SODIUM CHLORIDE 0.9% 1,000 ML IV ONE (21:14)
[2020-07-29] MEDS ORDERED: PIPERACILLIN/TAZOBACTAM 3.375GM/50ML PREMIX IV ONE (21:15)
[2020-07-29] MEDS ORDERED: VANCOMYCIN 1 G PREMIX 200 ML IV SCH (21:15)
[2020-07-29] MEDS ORDERED: METRONIDAZOLE 500 MG PREMIX 100 ML IV ONE (22:15)
[2020-07-29] MEDS ORDERED: CEFTRIAXONE 1 G PREMIX 50 ML IV ONE (22:15)
[2020-07-29 22:32] LABS: HEMATOCRIT. 33.4 % (42.0-52.0); HEMOGLOBIN. 10.6 g/dL (14.0-18.0); MEAN CORPUSCULAR HEMOGLOBIN 30.1 pg (28.0-32.0); MEAN CORPUSCULAR VOLUME 95.2 fL (80.0-94.0); MEAN PLATELET VOLUME 8.1 fl (7.4-10.4); PLATELET 164 x1000/uL (130-400); RED BLOOD CELL COUNT 3.51 mill/uL (4.7-6.1); RED CELL DISTRIBUTION WIDTH 16.4 % (11.6-14.6)
[2020-07-29 22:40] LABS: CHLORIDE 113 mEq/L (98-107)
[2020-07-29 22:42] LABS: INR 1.5; PROTHROMBIN TIME 15.1 sec (9.6-11.0)
[2020-07-29 22:49] LABS: PLATELET ESTIMATE NORMAL
[2020-07-30] VITALS (7 sets, daily range): BP systolic 120–163; BP diastolic 53–87
[2020-07-30] MEDS ORDERED: TRAM-529 PO (03:51)
[2020-07-30] MEDS ORDERED: ERGO400T7 PO (03:51)
[2020-07-30] MEDS ORDERED: NEBI20TA2 PO (03:51)
[2020-07-30] MEDS ORDERED: TAMS-11 PO (03:51)
[2020-07-30] MEDS ORDERED: FURO40TA5 PO (03:51)
[2020-07-30] MEDS ORDERED: METR-167 PO (03:51)
[2020-07-30] MEDS ORDERED: INDA1.255 PO (03:51)
[2020-07-30] MEDS ORDERED: FEBU40TA PO (03:51)
[2020-07-30] MEDS ORDERED: VITA1CAP16 PO (03:51)
[2020-07-30] MEDS ORDERED: ALBU18HF2 IH (03:51)
[2020-07-30] MEDS ORDERED: MAGN400T50 PO (03:51)
[2020-07-30] MEDS: OMEPRAZOLE 20MG CAPSULE EXTENDED RELEASE PO SCH (05:58)
[2020-07-30] MEDS: ACETAMINOPHEN 325MG TABLET PO PRN ×2 (09:05→20:02)
[2020-07-30] MEDS: METRONIDAZOLE 500 MG PREMIX 100 ML IV SCH ×3 (10:28→23:59)
[2020-07-30] MEDS: TRAMADOL 50MG TABLET PO PRN ×2 (11:13→20:02)
[2020-07-30 15:31] LABS: HEMOGLOBIN. 9.3 g/dL (14.0-18.0); MEAN CORPUSCULAR HEMOGLOBIN 30.7 pg (28.0-32.0); MEAN CORPUSCULAR VOLUME 92.6 fL (80.0-94.0); MEAN PLATELET VOLUME 8.5 fl (7.4-10.4); PLATELET 150 x1000/uL (130-400); RED BLOOD CELL COUNT 3.02 mill/uL (4.7-6.1); RED CELL DISTRIBUTION WIDTH 15.3 % (11.6-14.6)
[2020-07-30 15:39] LABS: CHLORIDE 111 mEq/L (98-107)
[2020-07-30 16:19] LABS: PLATELET ESTIMATE NORMAL
[2020-07-30 18:27] LABS: CLARITY URINE CLEAR (CLEAR); COLOR URINE DARK YELLOW (YELLOW); KETONES URINE NEGATIVE (NEGATIVE); LEUKOCYTE ESTERASE URINE TRACE (NEGATIVE); NITRITE URINE NEGATIVE (NEGATIVE); OCCULT BLOOD URINE 1+ (NEGATIVE); PROTEIN URINE 1+ (NEGATIVE)
[2020-07-30] MEDS: CEFTRIAXONE 1,000 MG in DEXTROSE 5% WATER 50 ML IV SCH (22:00)
[2020-07-31] VITALS: BP 128/66
[2020-07-31 04:00] VITALS: BP 144/57
[2020-07-31] MEDS: OMEPRAZOLE 20MG CAPSULE EXTENDED RELEASE PO SCH (06:11)
[2020-07-31 06:18] LABS: BASOPHILS % 0.5 % (0.0-2.0); EOSINOPHILS % 1.3 % (0.0-5.0); HEMATOCRIT. 27.3 % (42.0-52.0); HEMOGLOBIN. 8.9 g/dL (14.0-18.0); LYMPHOCYTES % 12.6 % (20.0-50.0); MEAN CORPUSCULAR HEMOGLOBIN 29.9 pg (28.0-32.0); MEAN CORPUSCULAR VOLUME 91.9 fL (80.0-94.0); MEAN PLATELET VOLUME 8.6 fl (7.4-10.4); MONOCYTES % 9.4 % (2.0-8.0); NEUTROPHILS % 76.2 % (40.0-76.0); PLATELET 148 x1000/uL (130-400); RED BLOOD CELL COUNT 2.97 mill/uL (4.7-6.1); RED CELL DISTRIBUTION WIDTH 15.9 % (11.6-14.6)
[2020-07-31] MEDS: METRONIDAZOLE 500 MG PREMIX 100 ML IV SCH ×2 (07:30→15:23)
[2020-07-31 07:39] LABS: CHLORIDE 110 mEq/L (98-107)
[2020-07-31 08:00] VITALS: BP 125/59
[2020-07-31] MEDS: TRAMADOL 50MG TABLET PO PRN ×2 (08:52→23:22)
[2020-07-31 12:00] VITALS: BP 115/50
[2020-07-31] MEDS: MORPHINE SULFATE 2 MG/ML CPJ (NOT FOR IM USE) IV PRN (15:31)
[2020-07-31 16:00] VITALS: BP 105/63
[2020-07-31 20:00] VITALS: BP 149/60
[2020-07-31 20:25] LABS: *AMPHETAMINES SCREEN URINE NEGATIVE (NEGATIVE); *BARBITURATES SCREEN URINE NEGATIVE (NEGATIVE); *COCAINE SCREEN URINE NEGATIVE (NEGATIVE); METHADONE URINE SCREEN NEGATIVE (NEGATIVE); OPIATES URINE SCREEN PRESUMTIVE POSITIVE (NEGATIVE)
[2020-07-31 20:27] LABS: CANNABINOID URINE SCREEN NEGATIVE (NEGATIVE); PHENCYCLIDINE URINE SCREEN NEGATIVE (NEGATIVE)
[2020-07-31 20:28] LABS: *BENZODIAZEPINES SCREEN URINE NEGATIVE (NEGATIVE)
[2020-07-31] MEDS: CEFTRIAXONE 1,000 MG in DEXTROSE 5% WATER 50 ML IV SCH (22:53)
[2020-08-01] VITALS: BP 146/61
[2020-08-01 04:00] VITALS: BP 142/58
[2020-08-01 06:18] LABS: HEMATOCRIT. 27.7 % (42.0-52.0); MEAN CORPUSCULAR HEMOGLOBIN 30.1 pg (28.0-32.0); MEAN PLATELET VOLUME 8.7 fl (7.4-10.4); PLATELET 153 x1000/uL (130-400); RED BLOOD CELL COUNT 3.01 mill/uL (4.7-6.1); RED CELL DISTRIBUTION WIDTH 15.8 % (11.6-14.6)
[2020-08-01 06:29] LABS: CHLORIDE 112 mEq/L (98-107)
[2020-08-01] MEDS: OMEPRAZOLE 20MG CAPSULE EXTENDED RELEASE PO SCH (06:46)
[2020-08-01 08:00] VITALS: BP 170/71
[2020-08-01] MEDS: METRONIDAZOLE 500 MG PREMIX 100 ML IV SCH ×4 (09:38→20:58)
[2020-08-01] MEDS: TRAMADOL 50MG TABLET PO PRN ×2 (10:30→20:58)
[2020-08-01 11:55] LABS: PARTIAL THROMBOPLASTIN TIME 28.9 sec (23.4-31.0); PROTHROMBIN TIME 10.9 sec (9.6-11.0)
[2020-08-01 12:00] VITALS: BP 151/60
[2020-08-01] MEDS ORDERED: HYDROCODONE/ACETAMINOPHEN 5/325MG TABLET PO PRN (13:15)
[2020-08-01 14:13] LABS: PLATELET ESTIMATE NORMAL
[2020-08-01 16:00] VITALS: BP 140/54
[2020-08-01 20:00] VITALS: BP 145/60
[2020-08-01] MEDS: CEFTRIAXONE 1,000 MG in DEXTROSE 5% WATER 50 ML IV SCH (20:58)
[2020-08-02] VITALS: BP 106/65
[2020-08-02] MEDS: TRAMADOL 50MG TABLET PO PRN (03:11)
[2020-08-02 04:00] VITALS: BP 152/61
[2020-08-02 06:49] LABS: BASOPHILS % 0.8 % (0.0-2.0); EOSINOPHILS % 4.3 % (0.0-5.0); HEMATOCRIT. 27.8 % (42.0-52.0); HEMOGLOBIN. 9.3 g/dL (14.0-18.0); LYMPHOCYTES % 27.4 % (20.0-50.0); MEAN CORPUSCULAR HEMOGLOBIN 30.2 pg (28.0-32.0); MEAN CORPUSCULAR VOLUME 90.6 fL (80.0-94.0); MEAN PLATELET VOLUME 8.3 fl (7.4-10.4); NEUTROPHILS % 55.5 % (40.0-76.0); PLATELET 166 x1000/uL (130-400); RED BLOOD CELL COUNT 3.07 mill/uL (4.7-6.1); RED CELL DISTRIBUTION WIDTH 15.6 % (11.6-14.6)
[2020-08-02] MEDS: METRONIDAZOLE 500 MG PREMIX 100 ML IV SCH ×3 (06:51→21:03)
[2020-08-02] MEDS: OMEPRAZOLE 20MG CAPSULE EXTENDED RELEASE PO SCH (06:52)
[2020-08-02 07:29] LABS: CHLORIDE 110 mEq/L (98-107)
[2020-08-02 08:03] VITALS: BP 167/70
[2020-08-02 12:05] VITALS: BP 174/67
[2020-08-02] MEDS ORDERED: LABETALOL 5MG/ML SYR 20 MG/4 ML SYRINGE IV NR (13:30)
[2020-08-02] MEDS ORDERED: EPINEPHRINE 0.1MG/ML (1:10,000) 10ML SYR ONE (15:00)
[2020-08-02] MEDS ORDERED: SIMETHICONE 40 MG/0.6 ML 30ML ONE (15:56)
[2020-08-02] MEDS ORDERED: IOHEXOL-300 100 ML BOTTLE ONE (15:56)
[2020-08-02] MEDS ORDERED: LEVOFLOXACIN 500MG PREMIX 100 ML IV ONE (16:06)
[2020-08-02] MEDS ORDERED: SUCCINYLCHOLINE CHLORIDE 200MG/10ML IV ONE (16:07)
[2020-08-02] MEDS ORDERED: FENTANYL CITRATE/PF 50MCG/ML 2ML VIAL ONE ×2 (16:07→18:51)
[2020-08-02] MEDS ORDERED: PROPOFOL 200MG/20ML VIAL IV ONE (16:07)
[2020-08-02] MEDS ORDERED: LIDOCAINE HCL/PF 1% 10 MG/ML 5ML VIAL ONE (16:08)
[2020-08-02] MEDS ORDERED: EPHEDRINE SULFATE 50MG/ML VIAL ONE (17:03)
[2020-08-02] MEDS ORDERED: ONDANSETRON HCL 4MG/2ML INJ ONE (17:41)
[2020-08-02] MEDS ORDERED: MEPERIDINE HCL/PF 25MG/ML CPJ IV PRN (17:45)
[2020-08-02] MEDS ORDERED: METOCLOPRAMIDE HCL 10MG/2ML VIAL IV NR (17:45)
[2020-08-02] MEDS: FENTANYL CITRATE/PF 50MCG/ML 2ML VIAL IV PRN ×4 (18:00→18:29)
[2020-08-02 20:00] VITALS: BP 158/76
[2020-08-02] MEDS: ONDANSETRON HCL 4MG/2ML INJ IV PRN (20:13)
[2020-08-02] MEDS: CEFTRIAXONE 1,000 MG in DEXTROSE 5% WATER 50 ML IV SCH (21:02)
[2020-08-02 21:12] LABS: HEMATOCRIT 36.3 % (42.0-52.0); HEMOGLOBIN 11.8 g/dL (14.0-18.0); MEAN CORPUSCULAR HEMOGLOBIN 29.5 pg (28.0-32.0); MEAN CORPUSCULAR VOLUME 91.3 fL (80.0-94.0); PLATELET 201 x1000/uL (130-400); RED BLOOD CELL COUNT 3.98 mill/uL (4.7-6.1); RED CELL DISTRIBUTION WIDTH 15.5 % (11.6-14.6)
[2020-08-02 21:13] LABS: CHLORIDE 109 mEq/L (98-107)
[2020-08-02] MEDS: MORPHINE SULFATE 2 MG/ML CPJ (NOT FOR IM USE) IV PRN (22:43)
[2020-08-03] VITALS: BP 176/82
[2020-08-03] MEDS ORDERED: LABETALOL 5MG/ML SYR 20 MG/4 ML SYRINGE IV PRN (01:00)
[2020-08-03] MEDS: ONDANSETRON HCL 4MG/2ML INJ IV PRN (02:39)
[2020-08-03 04:00] VITALS: BP 176/51
[2020-08-03] MEDS: METRONIDAZOLE 500 MG PREMIX 100 ML IV SCH ×3 (05:22→21:16)
[2020-08-03] MEDS: OMEPRAZOLE 20MG CAPSULE EXTENDED RELEASE PO SCH (06:24)
[2020-08-03] MEDS ORDERED: SKIN ADHESIVE 0.7 GM EA TOP ONE (07:04)
[2020-08-03] MEDS ORDERED: BUPIVACAINE HCL 0.5% (5MG/ML) 50ML ONE (07:04)
[2020-08-03 07:56] VITALS: BP 163/66
[2020-08-03] MEDS ORDERED: MORPHINE SULFATE 2 MG/ML CPJ (NOT FOR IM USE) IV PRN (09:15)
[2020-08-03] MEDS ORDERED: ONDANSETRON HCL 4MG/2ML INJ IV PRN ×2 (09:15→11:15)
[2020-08-03] MEDS ORDERED: HYDROCODONE/ACETAMINOPHEN 5/325MG TABLET PO PRN (09:15)
[2020-08-03] MEDS ORDERED: LIDOCAINE HCL/PF 1% 10 MG/ML 5ML VIAL ONE (09:16)
[2020-08-03] MEDS ORDERED: ROCURONIUM BROMIDE 10MG/ML VIAL 5ML IV ONE (09:17)
[2020-08-03] MEDS ORDERED: HYDROMORPHONE HCL/PF 2MG/ML (OR) ONE (09:36)
[2020-08-03] MEDS ORDERED: ONDANSETRON HCL 4MG/2ML INJ ONE (10:01)
[2020-08-03] MEDS ORDERED: NEOSTIGMINE METHYLSULFATE 1MG/ML 10 ML VIAL ONE (10:01)
[2020-08-03] MEDS ORDERED: GLYCOPYRROLATE 0.2 MG/ML 2ML VIAL ONE (10:01)
[2020-08-03] MEDS: HYDROMORPHONE HCL/PF 2MG/ML CPJ IV PRN ×4 (11:44→12:19)
[2020-08-03] MEDS ORDERED: HYDR-4009 MT (13:07)
[2020-08-03] MEDS: DEXT 5%/0.45% NACL KCL 20MEQ/L 1,000 ML IV SCH ×2 (13:29→19:47)
[2020-08-03] MEDS: AMLODIPINE 10MG TABLET PO SCH (13:29)
[2020-08-03] MEDS: SODIUM CHLORIDE 0.9% INJ 3ML FLUSH IVF SCH ×2 (13:30→21:25)
[2020-08-03] MEDS: HYDROCODONE/ACETAMINOPHEN 5/325MG TABLET PO PRN (13:31)
[2020-08-03 16:00] VITALS: BP 118/65
[2020-08-03] MEDS: MORPHINE SULFATE 4 MG/ML CPJ (NOT FOR IM USE) IV PRN ×3 (16:46→23:29)
[2020-08-03 20:00] VITALS: BP 147/64
[2020-08-03] MEDS: CEFTRIAXONE 1,000 MG in DEXTROSE 5% WATER 50 ML IV SCH (22:24)
[2020-08-04] VITALS (7 sets, daily range): BP systolic 121–158; BP diastolic 51–80
[2020-08-04] MEDS: HYDROCODONE/ACETAMINOPHEN 5/325MG TABLET PO PRN ×2 (01:33→17:36)
[2020-08-04] MEDS: METRONIDAZOLE 500 MG PREMIX 100 ML IV SCH (06:00)
[2020-08-04] MEDS: DEXT 5%/0.45% NACL KCL 20MEQ/L 1,000 ML IV SCH ×2 (06:00→17:38)
[2020-08-04] MEDS: TRAMADOL 50MG TABLET PO PRN (06:12)
[2020-08-04] MEDS: SODIUM CHLORIDE 0.9% INJ 3ML FLUSH IVF SCH ×2 (06:16→16:37)
[2020-08-04] MEDS: OMEPRAZOLE 20MG CAPSULE EXTENDED RELEASE PO SCH (06:37)
[2020-08-04] MEDS: AMLODIPINE 10MG TABLET PO SCH (08:37)
[2020-08-04] MEDS ORDERED: INDAPAMIDE (18:47)
[2020-08-04] MEDS ORDERED: RIVA20TA MT (18:47)
== END 2020-08-04 17:55 | DRG 853 ==
LOC: ER 19:01 → ENRESERV 07-30 02:06 → 8WST 07-30 03:03
PROVIDERS: ADMIT Internal Medicine; ATTEND Internal Medicine
PROC: 0F798ZZ Dilation of Common Bile Duct, Via Natural or Artificial Opening Endoscopic (ICD-10-PCS; 2020-08-02)
PROC: 0FC98ZZ Extirpation of Matter from Common Bile Duct, Via Natural or Artificial Opening Endoscopic (ICD-10-PCS; 2020-08-02)
PROC: 0FT44ZZ Resection of Gallbladder, Percutaneous Endoscopic Approach (ICD-10-PCS; principal; 2020-08-03)
DX: A41.9 Sepsis, unspecified organism (principal); N17.0 Acute kidney failure with tubular necrosis; E44.1 Mild protein-calorie malnutrition; K80.62 Calculus of gallbladder and bile duct with acute cholecystitis without obstruction; K83.09 Other cholangitis; D64.9 Anemia, unspecified; E11.22 Type 2 diabetes mellitus with diabetic chronic kidney disease; E87.8 Other disorders of electrolyte and fluid balance, not elsewhere classified; I12.9 Hypertensive chronic kidney disease with stage 1 through stage 4 chronic kidney disease, or unspecified chronic kidney disease; N18.9 Chronic kidney disease, unspecified; N40.0 Benign prostatic hyperplasia without lower urinary tract symptoms; E78.00 Pure hypercholesterolemia, unspecified; R74.01 Elevation of levels of liver transaminase levels; E78.5 Hyperlipidemia, unspecified; F15.90 Other stimulant use, unspecified, uncomplicated; Z20.828 Contact with and (suspected) exposure to other viral communicable diseases; I87.2 Venous insufficiency (chronic) (peripheral); I87.8 Other specified disorders of veins; Z82.49 Family history of ischemic heart disease and other diseases of the circulatory system; Z88.0 Allergy status to penicillin; Z09 Encounter for follow-up examination after completed treatment for conditions other than malignant neoplasm; Z79.899 Other long term (current) drug therapy; Z86.718 Personal history of other venous thrombosis and embolism; Z68.37 Body mass index [BMI] 37.0-37.9, adult
CPT/HCPCS: 36415; 71046; 73706; 74176; 74181; 74328; 76000; 76705; 78227; 80053; 80305; 81003; 82248; 83605; 84075; 84450; 84460; 84484; 85025; 85027; 86850; 86900; 87426; 88304; 93005; 97162; 97166; 97530; 99285; A9537; C1726; C1769; J0330; J0696; J1170; J1956; J2270; J2405; J2704; J2710; J2765; J3010; J3370; J3490; J7030; J7060; Q9967